=== PATIENT | male | born 1965 | race Caucasian/White ===

== ENCOUNTER 2020-06-11 10:08 | Emergency (ER) | payer OTHER, SELFPAY ==
[2020-06-11] VITALS (32 sets, daily range): BP systolic 131–156; BP diastolic 89–108; PULSE 85–127; RESP 18–32; TEMP 36.2; O2SAT 94–99
--- NOTE | 2020-06-11 10:24 | NUR.NOTE ---
Nursing Note: Has been taking Tylenol and Gas X without relief.
--- NOTE | 2020-06-11 10:45 | DI.CT_ITS ---
EXAM: CT ABDOMEN PELVIS W CLINICAL HISTORY: rlq pain, rebound tenderness, vomiting diarrhea TECHNIQUE: COMPARISON: No exams were available for comparison FINDINGS: CT examination of the abdomen and pelvis was performed with bolus infusion of 100 cc of Omnipaque 350 . Images obtained through the lung bases are unremarkable. The liver appears normal with no evidence of a focal mass. Spleen is unremarkable in appearance.. Gallbladder and bile ducts are unremarkable. Pancreas is unremarkable in appearance. Adrenals appear normal bilaterally. Kidneys appear normal with no evidence of renal mass, hydronephrosis, or nephrolithiasis There is no evidence of abdominal or pelvic adenopathy. Abdominal aorta is of normal diameter and no major vascular abnormality is seen. Appendix is nonvisualized. There is mild abdominal ascites, predominantly in the pericolic gutters i n the pelvis. There is marked wall thickening of the sigmoid colon with prominent associated fat str anding. There is 44 x 37 millimeter in diameter fluid and gas containing apparent abscess with an en hancing wall consistent with a diverticular abscess of the sigmoid. Multiple loops of small bowel are wrapped around the region of the abscess and there is marked small bowel wall edema in this region. There appears to be a mild small bowel obstruction with moderate di latation of small bowel proximal to the site described above. Additionally there is small bowel wall edema involving the terminal ileum, nonspecific. Small bowel enteritis/colitis not excluded. Urinary bladder has a markedly thickened wall which may represent chronic bladder outlet obstruction. Small left fat containing inguinal hernia noted, there appears to be some fluid in the hernia sac. Impression: Lower abdominal midline abscess just posterior to the anterior abdominal wall below the level of the umbilicus, this appears to represent a diverticular abscess with associated diverticulitis. There ap pears to be secondary small-bowel obstruction due to small bowel wall edema in small-bowel loops wrap ped around the region of the presumed abscess. Additional areas of small bowel wall thickening/edema are also seen particularly the terminal ileum, these are nonspecific and may be associated with generalized intra-abdominal inflammatory process. O ther etiologies including small-bowel enteritis not excluded. Appropriate follow-up studies requeste d. RADIATION DOSE DELIVERED: 676.93mGy.cm Total DLP 676.93mGy.cm Total DLP DATA REPOSITORY: All CT scans at this facility are submitted to the National Radiology Data Registry (NRDR) Dose Index Registry (DIR) with the [employer] ([employer]). RADIATION OPTIMIZATION: All CT scans at this facility use at least one of these dose optimization te chniques: automated exposure control; mA and/or kV adjustment per patient size (includes targeted exa ms where dose is matched to clinical indication); or iterative reconstruction.
[2020-06-11 10:49] LABS: Lactate 1.9 mmol/L (0.6-1.4)
[2020-06-11 10:52] LABS: Abs Immature Grans 0.08 10^3/uL (0.0-0.06); Absolute Eosinophil Count 0.02 10^3/uL (0.0-0.7); Absolute Lymphocyte Count 0.82 10^3/uL (1.2-3.4); Absolute Neutrophil Count 14.05 10^3/uL (1.2-6.7); Basophils % 0.3; Eosinophils % 0.1; HCT 44.4 % (40.0-50.0); HGB 15.8 g/dL (13.5-17.5); Immature Grans % 0.5; Lymphocytes % 5.2; MCH 31.4 pg (27.0-33.0); MCHC 35.6 % (32.0-36.0); MCV 88.3 fL (80-95); MPV 10.2 fL (8.0-11.0); Monocytes % 4.9; Nucleated RBC 0 %; Platelet Count 283 10^3/uL (130-400); RBC 5.03 10^6/uL (4.36-5.78); RDW 11.7 % (11.8-14.1); RDW-SD 37.5 fL; WBC 15.79 10^3/uL (4.4-10.8)
[2020-06-11 10:57] LABS: Absolute Basophil Count 0.05 10^3/uL (0.0-0.2); Absolute Monocyte Count 0.77 10^3/uL (0.1-0.8)
--- NOTE | 2020-06-11 10:59 | ED.GENADUL_ITS ---
Discharge Plan Disposition Patient Disposition: [facility] Condition: Serious Discharge Details Clinical Impression: Diverticulitis of large intestine with abscess, Small bowel obstruction Primary Care Provider: Joni Wolfe ED Provider: Nelson Romo Home Meds and New Rx's Prescriptions: No Action No Known Home Meds RF: 0 Discharge Data Discharge Date/Time-TO BE ENTERED AT DEPARTURE: 06/11/20 13:41 Medical Decision Making <Nelson Romo MD - Last Filed: 06/28/20 11:43> 11:05 -- 55yo m with 3 days lower abd pain, nausea/vomiting, loose stool, tender RLQ with rebound tenderness. Patient is tachycardic. Attempted [id number] ultrasound and unable to visualize aorta due to bowel gas. Plan for CT of the abdomen pelvis to assess for acute surgical pathology including acute appendicitis and perforated viscus. Patient remain n.p.o. and will give IVF. 12:58 --labs reviewed and leukocytosis noted. CT abdomen pelvis was reviewed and interpreted by radiology: Perforated viscus with 4 cm abscess from likely diverticulum, associated small bowel inflammation with small bowel obstruction. Initiated antibiotic coverage with Zosyn 4.5 g IV. Patient reassessed and heart rate improved. I called and spoke with on-call general surgeon, Dr. Dinero and discussed ED presentation and diagnostics. Dr. Dinero reviewed CT scans and examined the patient. Recommendation is for transfer for interventional radiology to drain abscess. I called and spoke with on-call surgeon at [facility], Dr. Leone, discussed ED presentation and course including diagnostics, CT scan for review, he may accept the patient in transfer. No additional antibiotic coverage recommended at this time. Imaging Data Radiologic Study: Imaging: CT Scan (Abdomen and pelvis with IV contrast) Radiologist's impression: Impression: Lower abdominal midline abscess just posterior to the anterior abdominal wall below the level of the umbilicus, this appears to represent a diverticular abscess with associated diverticulitis. There appears to be secondary small- bowel obstruction due to small bowel wall edema in small-bowel loops wrapped around the region of the presumed abscess. Additional areas of small bowel wall thickening/edema are also seen particularly the terminal ileum, these are nonspecific and may be associated with generalized intra-abdominal inflammatory process. Other etiologies including small-bowel enteritis not excluded. Appropriate follow-up studies requested. Lab Data Lab results reviewed: Yes I reviewed the patient's lab results. Labs: 06/11/20 10:20 Urine - Reflex from Ua Urine Culture - Pending Laboratory Tests Range/Units 06/11/20 06/11/20 06/11/20 10:20 10:30 10:30 WBC (4.4-10.8) 10^3/uL RBC (4.36-5.78) 10^6/uL Hgb (13.5-17.5) g/dL Hct (40.0-50.0) % MCV (80-95) fL MCH (27.0-33.0) pg MCHC (32.0-36.0) % RDW (11.8-14.1) % Plt Count (130-400) 10^3/uL MPV (8.0-11.0) fL Immature Gran % Neutrophils % Lymphocytes % Monocytes % Eosinophils % Basophils % Nucleated RBC % % Absolute Neutrophils (1.2-6.7) 10^3/uL Absolute Lymphocytes (1.2-3.4) 10^3/uL Absolute Monocytes (0.1-0.8) 10^3/uL Absolute Eosinophils (0.0-0.7) 10^3/uL Absolute Basophils (0.0-0.2) 10^3/uL VBG Lactate (0.6-1.4) mmol/L 1.9 H Sodium (136-145) mmol/L 131 L Potassium (3.5-5.1) mmol/L 3.4 L Chloride (98-107) mmol/L 95 L Carbon Dioxide (21.0-32.0) mmol/L 23.0 Anion Gap (3-11) mmol/L 13.0 H BUN (7-18) mg/dL 21 H Creatinine (0.70-1.30) mg/dL 1.10 Estimated GFR/1.73 m2 (mL/min/1.73m2) >= 60.00 Glucose (74-106) mg/dL 162 H Calcium (8.5-10.1) mg/dL 9.3 Total Bilirubin (0.2-1.0) mg/dL 0.8 AST (15-37) U/L 12 L ALT (16-63) U/L 19 Alkaline Phosphatase (46-116) U/L 94 Total Protein (6.4-8.2) g/dL 8.5 H Albumin (3.4-5.0) g/dL 3.3 L Lipase (73-393) U/L 39 Urine Color (Yellow) Yellow Urine Clarity (Clear) Clear Urine pH (5-8) 5.5 Ur Specific [place] (1.005-1.025) >= 1.030 H Urine Protein (Negative) mg/dL 100 H Urine Ketones (Negative) mg/dL 40 H Urine Blood (Negative) Trace-intact H Urine Nitrite (Negative) Negative Urine Bilirubin (Negative) Moderate H Urine Urobilinogen (Up TO 0.2) EU/dL 0.2 Ur Leukocyte Esterase (Negative) Negative Urine RBC (0-2) HPF 5-10 H Urine WBC (0-5) HPF >50 H Ur Epithelial Cells (Negative) HPF Few Urine Crystals (Negative) HPF Moderate amorphous Urine Bacteria (Negative) HPF Many Urine Casts (Negative) LPF Comment Urine Mucus (Negative) Heavy Ur Culture Indicated? Yes Urine Glucose (Negative) mg/dL Negative Range/Units 06/11/20 10:30 WBC (4.4-10.8) 10^3/uL 15.79 H RBC (4.36-5.78) 10^6/uL 5.03 Hgb (13.5-17.5) g/dL 15.8 Hct (40.0-50.0) % 44.4 MCV (80-95) fL 88.3 MCH (27.0-33.0) pg 31.4 MCHC (32.0-36.0) % 35.6 RDW (11.8-14.1) % 11.7 L Plt Count (130-400) 10^3/uL 283 MPV (8.0-11.0) fL 10.2 Immature Gran % 0.5 Neutrophils % 89.0 Lymphocytes % 5.2 Monocytes % 4.9 Eosinophils % 0.1 Basophils % 0.3 Nucleated RBC % % 0 Absolute Neutrophils (1.2-6.7) 10^3/uL 14.05 H Absolute Lymphocytes (1.2-3.4) 10^3/uL 0.82 L Absolute Monocytes (0.1-0.8) 10^3/uL 0.77 Absolute Eosinophils (0.0-0.7) 10^3/uL 0.02 Absolute Basophils (0.0-0.2) 10^3/uL 0.05 VBG Lactate (0.6-1.4) mmol/L Sodium (136-145) mmol/L Potassium (3.5-5.1) mmol/L Chloride (98-107) mmol/L Carbon Dioxide (21.0-32.0) mmol/L Anion Gap (3-11) mmol/L BUN (7-18) mg/dL Creatinine (0.70-1.30) mg/dL Estimated GFR/1.73 m2 (mL/min/1.73m2) Glucose (74-106) mg/dL Calcium (8.5-10.1) mg/dL Total Bilirubin (0.2-1.0) mg/dL AST (15-37) U/L ALT (16-63) U/L Alkaline Phosphatase (46-116) U/L Total Protein (6.4-8.2) g/dL Albumin (3.4-5.0) g/dL Lipase (73-393) U/L Urine Color (Yellow) Urine Clarity (Clear) Urine pH (5-8) Ur Specific [place] (1.005-1.025) Urine Protein (Negative) mg/dL Urine Ketones (Negative) mg/dL Urine Blood (Negative) Urine Nitrite (Negative) Urine Bilirubin (Negative) Urine Urobilinogen (Up TO 0.2) EU/dL Ur Leukocyte Esterase (Negative) Urine RBC (0-2) HPF Urine WBC (0-5) HPF Ur Epithelial Cells (Negative) HPF Urine Crystals (Negative) HPF Urine Bacteria (Negative) HPF Urine Casts (Negative) LPF Urine Mucus (Negative) Ur Culture Indicated? Urine Glucose (Negative) mg/dL <FRANCISCO Moreno - Last Filed: 06/12/20 08:24> Addendum: contacted by lab, negative COVID. Called [facility] and relayed information. HPI <Nelson Romo MD - Last Filed: 06/28/20 11:43> General Mode of arrival: ambulatory . Date/Time Provider Initiated Documentation: 06/11/20 10:17 . Limitations to Documentation: no limitations . Information obtained by: patient . HPI Narrative: 55-year-old otherwise healthy male presents with chief complaint of abdominal pain. Pain has been persistent for the past 3 days. Pain waxes and wanes but is constantly present. Pain localized to lower abdomen worse on the right. Patient has associated nonbloody vomiting, nausea, anorexia, and loose nonbloody stool. He notes his stool this morning did seem darker than usual. He has had some associated subjective fever. Pain is currently moderate worse with movement described as sharp. Rel ated Data Home Medications Medication Instructions Recorded Confirmed Unknown [No Known Home Meds] 06/20/17 06/23/20 Allergies Allergy/AdvReac Type Severity Reaction Status Date / Time No Known Drug Allergies Allergy Verified 06/23/20 13:13 General Stated Complaint: Abd Prob ZENOBIA: 2 Review of Systems <Nelson Romo MD - Last Filed: 06/28/20 11:43> All systems reviewed & are unremarkable except as noted in HPI and below Constitutional Constitutional: Reports as per HPI Gastrointestinal Gastrointestinal: Reports as per HPI, Reports abdominal pain, Reports nausea and Reports vomiting Genitourinary Genitourinary: Denies difficulty urinating and Denies dysuria PFSH <Nelson Romo MD - Last Filed: 06/28/20 11:43> Medical History (Updated 06/23/20 @ 13:45 by Michael Soto NP) Alcohol abuse, unspecified (04/05/10) No pertinent past medical history Surgical History Excision, Distal Clavicle (02/24/14) LEFT Rotator Cuff Repair B/L Family History Mother Hyperlipidemia Father Diabetes Essential hypertension Hyperlipidemia Stroke Social History (Updated 06/11/20 @ 12:48 by Avelina Dinero MD) Smoking/Tobacco Use Status: Never Smoking risk assessment performed?: Yes Alcohol Intake: current Alcohol Intake frequency: a few times a week Alcohol type: beer Drug use: Never Substance use type: does not use Household members: spouse Do you feel safe at home: Yes Do you feel safe in your relationship?: Yes Exam <Nelson Romo MD - Last Filed: 06/28/20 11:43> Const General: cooperative and no acute distress HENMT Head: normocephalic and atraumatic Mouth: moist mucous membranes Eyes Conjunctivae: normal conjunctivae Sclera: normal sclerae Neck Neck: trachea midline and supple Resp Auscultation: clear to auscultation bilaterally, no rales, no rhonchi and no wheezes Cardio Rhythm: regular rhythm GI Inspection: non-distended Palpation: soft, firm, no guarding, no masses, not rigid and tender in the RLQ and with rebound tenderness Skin General skin exam: no rashes or lesions noted Neuro General: patient alert, patient awake, patient oriented x3 and tone normal Extrem General: no edema Psych Appearance: grossly normal Mental Status: mental status grossly normal Course <Nelson Romo MD - Last Filed: 06/28/20 11:43> Vital Signs Vital signs: Vital Signs Temperature 36.2 C L 06/11/20 10:13 Pulse 101 H 06/11/20 10:13 Respiratory Rate 24 06/11/20 10:13 Blood Pressure 154/108 H 06/11/20 10:13 Pulse Oximetry 97 06/11/20 10:13 Temperature 36.2 C L 06/11/20 10:13 Temperature Source Temporal Artery Scan 06/11/20 10:13 Pulse 101 H 06/11/20 10:13 Respiratory Rate 24 06/11/20 10:13 Respiratory Effort Non-Labored 06/11/20 10:21 Blood Pressure 154/108 H 06/11/20 10:13 Blood Pressure Position Supine 06/11/20 10:13 Pulse Oximetry 97 06/11/20 10:13 Oxygen Delivery Method Room Air 06/11/20 10:13 Oxygen Flow Rate 0 06/11/20 10:13 Pain Level 5 06/11/20 10:13 Comment 06/11/20 10:13 Lab/Test Results Lab/Test Results: Laboratory Tests Range/Units 06/11/20 06/11/20 10:30 10:30 WBC (4.4-10.8) 10^3/uL 15.79 H RBC (4.36-5.78) 10^6/uL 5.03 Hgb (13.5-17.5) g/dL 15.8 Hct (40.0-50.0) % 44.4 MCV (80-95) fL 88.3 MCH (27.0-33.0) pg 31.4 MCHC (32.0-36.0) % 35.6 RDW (11.8-14.1) % 11.7 L Plt Count (130-400) 10^3/uL 283 MPV (8.0-11.0) fL 10.2 Immature Gran % 0.5 Neutrophils % 89.0 Lymphocytes % 5.2 Monocytes % 4.9 Eosinophils % 0.1 Basophils % 0.3 Nucleated RBC % % 0 Absolute Neutrophils (1.2-6.7) 10^3/uL 14.05 H Absolute Lymphocytes (1.2-3.4) 10^3/uL 0.82 L Absolute Monocytes (0.1-0.8) 10^3/uL 0.77 Absolute Eosinophils (0.0-0.7) 10^3/uL 0.02 Absolute Basophils (0.0-0.2) 10^3/uL 0.05 VBG Lactate (0.6-1.4) mmol/L 1.9 H
[2020-06-11 11:03] LABS: ALT 19 U/L (16-63); AST 12 U/L (15-37); Albumin 3.3 g/dL (3.4-5.0); Alkaline Phosphatase 94 U/L (46-116); BUN 21 mg/dL (7-18); Bilirubin, Total 0.8 mg/dL (0.2-1.0); Calcium 9.3 mg/dL (8.5-10.1); Chloride 95 mmol/L (98-107); Glucose 162 mg/dL (74-106); Lipase 39 U/L (73-393); Potassium 3.4 mmol/L (3.5-5.1); Sodium 131 mmol/L (136-145); Total Protein 8.5 g/dL (6.4-8.2)
[2020-06-11 11:18] LABS: Bilirubin Moderate (Negative); Blood Trace-intact (Negative); Clarity Clear (Clear); Glucose Negative (Negative); Ketones 40 mg/dL (Negative); Leukocyte Esterase Negative (Negative); Nitrite Negative (Negative); Specific Gravity >= 1.030 (1.005-1.025); Urobilinogen 0.2 EU/dL (Up TO 0.2); pH 5.5 (5-8)
[2020-06-11 11:23] LABS: Bacteria Many HPF (Negative); Epithelial Cells Few HPF (Negative); WBC >50 HPF (0-5)
[2020-06-11 11:24] LABS: C & S Indicated? Yes; Crystals Moderate Amorphous HPF (Negative); Mucus Heavy (Negative)
[2020-06-11] MEDS: Omnipaque 350 MG/ML 100 ML BTL IV (11:24)
[2020-06-11] MEDS: Normal Saline - Diluent 50 ML VIAL IV (11:29)
[2020-06-11] MEDS: Omnipaque 350 MG/ML 100 ML BTL IJ (11:32)
[2020-06-11] MEDS: Lactated Ringers 500 ML 1000 ML IV (11:43)
[2020-06-11] MEDS: PIPERACILLIN/TAZO 4.5 GM in Normal Saline 100 ML IVPB (12:07)
--- NOTE | 2020-06-11 12:25 | SCONE_ITS ---
Date of service: 06/11/20 Time of Service: 12:25 Assessment and Plan Assessment and plan (1) Diverticulitis of large intestine with abscess: Status: Acute Assessment and plan: 55 year old with a ruptured sigmoid diverticulum with abscess. Abdomen is tender. He has guarding Explained the disease to him and his . I think he would benefit from drainage procedure and IV antibiotics to try and avoid surgery with colostomy. Discussed case with Dr. Romo. Will see if [facility] has a bed so he can have IR drainage. If there is no bed then I will try to set up transport back and forth to IR at [facility] and then treat him with IV antibiotics Dr. Romo discussed case with Dr. Lay who will accept the patient Appreciate the consult Qualifiers: Diverticulitis bleeding: without bleeding Qualified Code(s): K57.20 - Diverticulitis of large intestine with perforation and abscess without bleeding History of Present Illness History of Present Illness Chief Complaint: ruptured diverticulum with abscess Narrative: Mr. Ernst is a 55-year-old otherwise healthy male that presented with chief complaint of abdominal pain. The pain started on sunday. Pain waxes and wanes but is constantly present. Pain localized to lower abdomen worse on the right. Patient has associated nonbloody vomiting, nausea, anorexia, and loose nonbloody stool. He notes his stool this morning did seem darker than usual. He has had some associated subjective fever. Pain is currently moderate worse with movement described as sharp. Work-up showed WBC count elevated at 15.79 with a left shift. CT scan revealed a sigmoid diverticular rupture with 4.4 cm abscess. There is dilatation of the small bowel surrounding it. He has no cardiac history. He denies chest pain Consults Consult date: 06/11/20 Requesting physician: Nelson Romo Review of Systems Constitutional Constitutional: Reports fatigue, Reports fever(s), Denies headache(s), Reports poor appetite and Denies weight loss Eyes Eyes: Denies change in vision ENT Ears, Nose, Mouth, and Throat: Denies dysphagia, Denies headache(s) and Denies hoarseness Cardiovascular Cardiovascular: Denies chest pain, Denies chest pain at rest, Denies chest pain with activity, Denies irregular heart rhythm, Denies palpitations and Denies dyspnea Respiratory Respiratory: Denies cough and Denies dyspnea Gastrointestinal Gastrointestinal: Reports as per HPI and Denies dysphagia Genitourinary Genitourinary: Reports system reviewed and no additional complaints, except as documented Musculoskeletal Musculoskeletal: Reports system reviewed and no additional complaints, except as documented Integumentary/Breasts Skin/Breast: Reports system reviewed and no additional complaints, except as documented Neurologic Neurologic: Reports system reviewed and no additional complaints, except as documented and Denies headache(s) Psychiatric Psychiatric: Reports system reviewed and no additional complaints, except as documented Endocrine Endocrine: Reports system reviewed and no additional complaints, except as docu mented, Reports fatigue and Denies palpitations [facility] Medical History (Updated 06/11/20 @ 12:52 by Avelina Dinero MD) Alcohol abuse, unspecified (04/05/10) No pertinent past medical history Surgical History Excision, Distal Clavicle (02/24/14) LEFT Rotator Cuff Repair B/L Family History Mother Hyperlipidemia Father Diabetes Essential hypertension Hyperlipidemia Stroke Social History (Updated 06/11/20 @ 12:48 by Avelina Dinero MD) Smoking/Tobacco Use Status: Never Smoking risk assessment performed?: Yes Alcohol Intake: current Alcohol Intake frequency: a few times a week Alcohol type: beer Drug use: Never Substance use type: does not use Household members: spouse Do you feel safe at home: Yes Do you feel safe in your relationship?: Yes Exam Const General: cooperative, comfortable and no acute distress Orientation: alert and oriented x3 HENMT Head: normocephalic and atraumatic Resp Effort & Inspection: normal respiratory effort Auscultation: clear to auscultation bilaterally Cardio Rate: regular rate Rhythm: regular rhythm Heart Sounds: no gallops, no murmurs and no rubs GI Inspection: normal to inspection Palpation: soft, no hepatosplenomegaly and tender (lower abdomen with guarding) Auscultation: normal bowel sounds Results Last Vital Signs Temp 97.2 F L 06/11/20 10:13 Pulse 99 H 06/11/20 11:01 Resp 31 H 06/11/20 11:01 BP 139/92 H 06/11/20 11:01 Pulse Ox 97 06/11/20 11:01 Labs Result diagrams: 06/11/20 10:30 06/11/20 10:30 Labs: Laboratory Results - last 24 hr 06/11/20 06/11/20 06/11/20 10:20 10:30 10:30 WBC RBC Hgb Hct MCV MCH MCHC RDW Plt Count MPV Immature Gran % Neutrophils % Lymphocytes % Monocytes % Eosinophils % Basophils % Nucleated RBC % Absolute Neutrophils Absolute Lymphocytes Absolute Monocytes Absolute Eosinophils Absolute Basophils VBG Lactate 1.9 H Sodium 131 L Potassium 3.4 L Chloride 95 L Carbon Dioxide 23.0 Anion Gap 13.0 H BUN 21 H Creatinine 1.10 Estimated GFR/1.73 m2 >= 60.00 Glucose 162 H Calcium 9.3 Total Bilirubin 0.8 AST 12 L ALT 19 Alkaline Phosphatase 94 Total Protein 8.5 H Albumin 3.3 L Lipase 39 Urine Color Yellow Urine Clarity Clear Urine pH 5.5 Ur Specific [place] >= 1.030 H Urine Protein 100 H Urine Ketones 40 H Urine Blood Trace-intact H Urine Nitrite Negative Urine Bilirubin Moderate H Urine Urobilinogen 0.2 Ur Leukocyte Esterase Negative Urine RBC 5-10 H Urine WBC >50 H Ur Epithelial Cells Few Urine Crystals Moderate amorphous Urine Bacteria Many Urine Casts Comment Urine Mucus Heavy Ur Culture Indicated? Yes Urine Glucose Negative 06/11/20 10:30 WBC 15.79 H RBC 5.03 Hgb 15.8 Hct 44.4 MCV 88.3 MCH 31.4 MCHC 35.6 RDW 11.7 L Plt Count 283 MPV 10.2 Immature Gran % 0.5 Neutrophils % 89.0 Lymphocytes % 5.2 Monocytes % 4.9 Eosinophils % 0.1 Basophils % 0.3 Nucleated RBC % 0 Absolute Neutrophils 14.05 H Absolute Lymphocytes 0.82 L Absolute Monocytes 0.77 Absolute Eosinophils 0.02 Absolute Basophils 0.05 VBG Lactate Sodium Potassium Chloride Carbon Dioxide Anion Gap BUN Creatinine Estimated GFR/1.73 m2 Glucose Calcium Total Bilirubin AST ALT Alkaline Phosphatase Total Protein Albumin Lipase Urine Color Urine Clarity Urine pH Ur Specific [place] Urine Protein Urine Ketones Urine Blood Urine Nitrite Urine Bilirubin Urine Urobilinogen Ur Leukocyte Esterase Urine RBC Urine WBC Ur Epithelial Cells Urine Crystals Urine Bacteria Urine Casts Urine Mucus Ur Culture Indicated? Urine Glucose
--- NOTE | 2020-06-11 12:31 | NUR.NOTE ---
Nursing Note:LR 500 ml in HR initially 87. HR now 114 after NG tube inserted. Discussed with Dr. Dinero will finish the liter.
--- NOTE | 2020-06-11 13:07 | DI.RAD_ITS ---
EXAM: XR ABDOMEN FLAT PLATE CLINICAL HISTORY: post ng placement TECHNIQUE: COMPARISON: No exams were available for comparison FINDINGS: Three views were obtained. There is marked proximal small bowel dilatation as noted on today's CT. Contrast is present in the collecting systems and ureters bilaterally and in the urinary bladder. No gross free intraperitoneal air. There is an NG tube the tip of which lies in the distal esophagus about 5 cm above the esophageal hia tus. IMPRESSION: RADIATION DOSE DELIVERED: Total DLP Total DLP
[2020-06-12 08:22] LABS: COVID-19 RT-PCR UVMMC Result Negative (Negative)
--- NOTE | 2020-06-13 07:56 | NUR.NOTE ---
Nursing Note: Urine culture result faxed to [facility] . . Ciarra Dowell
== END 2020-06-11 13:41 | disposition short-term general hospital (02) ==
PROVIDERS: Emergency Provider Student in an Organized Health Care Education/Training Program; PCP Family Medicine
DX: K57.20 Diverticulitis of large intestine with perforation and abscess without bleeding (principal); R10.823 Right lower quadrant rebound abdominal tenderness; Z03.818 Encounter for observation for suspected exposure to other biological agents ruled out
CPT/HCPCS: 36415; 80053; 83690; 96361; 96365; 99253; 99285; U0003; 74018; 74177; 81003; 81015; 83605; 85025; 87086; J2543; J3490

== ENCOUNTER 2022-08-23 04:08 | Outpatient (CLI) | payer OTHER, SELFPAY ==
[2022-08-23 09:13] LABS: Hemoglobin A1C 5.3 % (<5.7)
[2022-08-23 09:33] LABS: ALT 34 U/L (16-63); AST 22 U/L (15-37); Albumin 4.6 g/dL (3.4-5.0); Alkaline Phosphatase 109 U/L (46-116); Anion Gap 11.6 mmol/L (3-11); BUN 16 mg/dL (7-18); Bilirubin, Total 0.7 mg/dL (0.2-1.0); CO2 24.4 mmol/L (21.0-32.0); CREATININE 0.8 mg/dL (0.70-1.30); Calcium 9.5 mg/dL (8.5-10.1); Calculated LDL 136 mg/dL (<100); Chloride 102 mmol/L (98-107); Cholesterol 239 mg/dL (<200); Estimated GFR 102.58 (mL/min/1.73m2); Glucose 111 mg/dL (74-106); HDL Cholesterol 81 mg/dL (40-60); Potassium 3.9 mmol/L (3.5-5.1); Sodium 138 mmol/L (136-145); Triglyceride 113 mg/dL (<150)
[2022-08-23 17:44] LABS: PSA, Screening 0.6 ng/mL (<=3.5)
== END 2022-08-23 04:09 | disposition home or self-care (01) ==
LOC: LBO 04:08
PROVIDERS: PCP Nurse Practitioner Family; Visit Provider Nurse Practitioner Family
DX: Z13.1 Encounter for screening for diabetes mellitus (principal); R03.0 Elevated blood-pressure reading, without diagnosis of hypertension; Z12.5 Encounter for screening for malignant neoplasm of prostate; Z13.220 Encounter for screening for lipoid disorders
CPT/HCPCS: 36415; 80053; 80061; 84153; 83036

== ENCOUNTER 2024-02-06 10:16 | Outpatient (CLI) | payer OTHER, SELFPAY ==
--- NOTE | 2024-02-06 10:15 | RT.EKG_ITS ---
APPROVED REPORT Exam: Resting ECG Reason for Exam: weakness Patient Location: O HR:67 bpm ECG Measurements Heart Rate 67 AXIS NC 155 P 8 QRSd 110 QRS -22 QT 375 T 34 QTc 396 Conclusion Sinus rhythm...normal P axis, V-rate 50- 99 Borderline left axis deviation...QRS axis (-15,-29) RSR' in V1 or V2, probably normal variant...small R' only
== END 2024-02-06 10:17 | disposition home or self-care (01) ==
LOC: DI.CM 10:17
PROVIDERS: PCP Nurse Practitioner Family; Visit Provider Nurse Practitioner Family
DX: R53.1 Weakness (principal); R94.31 Abnormal electrocardiogram [ECG] [EKG]
CPT/HCPCS: 93010

== ENCOUNTER → 2024-02-06 12:18 | Outpatient (CLI) | payer OTHER, SELFPAY ==
--- NOTE | 2024-02-06 10:45 | DI.RAD_ITS ---
Exam(s) XR CHEST 2V PA LATERAL EXAM: XR CHEST 2V PA LATERAL CLINICAL HISTORY: fatigue,weakness,r53.1 TECHNIQUE: 2D digital imaging was performed of the chest. Two images were obtained. PA and lateral views were obtained. COMPARISON: CR CHEST 2 VIEWS PA,LAT from 06/20/2017 FINDINGS: MEDIASTINUM: Normal. HEART: Normal. PULMONARY VASCULATURE: Normal. LUNGS: Clear. PLEURAL SPACE: No pleural effusion or pneumothorax. BONE:Within normal limits for the patient's age. OTHER FINDINGS:Normal. IMPRESSION: No acute pulmonary findings. DATA REPOSITORY: RADIATION DOSE DELIVERED:
== END ==
PROVIDERS: PCP Nurse Practitioner Family; Visit Provider Nurse Practitioner Family
DX: R53.1 Weakness (principal)
CPT/HCPCS: 71046

== ENCOUNTER 2024-02-06 22:48 | Outpatient (REF) | payer OTHER, SELFPAY ==
[2024-02-06 18:33] LABS: Abs Immature Grans 0.02 10^3/uL (0.0-0.06); Absolute Basophil Count 0.06 10^3/uL (0.0-0.2); Absolute Eosinophil Count 0.21 10^3/uL (0.0-0.7); Absolute Lymphocyte Count 2.27 10^3/uL (1.2-3.4); Absolute Monocyte Count 0.45 10^3/uL (0.1-0.8); Absolute Neutrophil Count 3.68 10^3/uL (1.2-6.7); Basophils % 0.9 %; Eosinophils % 3.1 %; HCT 46.4 % (40.0-50.0); HGB 15.9 g/dL (13.5-17.5); Immature Grans % 0.3 %; Lymphocytes % 33.9 %; MCH 32.4 pg (27.0-33.0); MCHC 34.3 % (32.0-36.0); MCV 95 fL (80-95); MPV 9.4 fL (8.0-11.0); Monocytes % 6.7 %; Neutrophils % 55.1 %; Platelet Count 280 10^3/uL (130-400); RBC 4.91 10^6/uL (4.36-5.78); RDW 11.8 % (11.8-14.1); WBC 6.69 10^3/uL (4.4-10.8)
[2024-02-06 18:38] LABS: Iron 131 ug/dL (65-175)
[2024-02-06 18:48] LABS: ALT 43 U/L (16-63); AST 24 U/L (15-37); Albumin 4.1 g/dL (3.4-5.0); Alkaline Phosphatase 105 U/L (46-116); Anion Gap 12.3 mmol/L (3-11); BUN 13 mg/dL (7-18); Bilirubin, Total 0.38 mg/dL (0.2-1.0); CO2 25.7 mmol/L (21.0-32.0); CREATININE 0.7 mg/dL (0.70-1.30); Calcium 9.3 mg/dL (8.5-10.1); Chloride 106 mmol/L (98-107); Estimated GFR 106.14 (mL/min/1.73m2); Glucose 118 mg/dL (74-106); Potassium 3.9 mmol/L (3.5-5.1); Sodium 144 mmol/L (136-145); TSH (W/Ref FT4) 2.07 uIU/mL (0.36-3.74); Total Protein 7.4 g/dL (6.4-8.2)
[2024-02-06 18:50] LABS: C-Reactive Protein < 0.50 mg/dL (<or=0.5)
[2024-02-06 19:26] LABS: Ferritin 989 ng/mL (26-388); Vitamin B12 595 pg/mL (193-986)
[2024-02-08 11:00] LABS: Uric Acid 9.6 mg/dL (3.5-7.2)
[2024-02-08 18:04] LABS: Rheumatoid Factor <8.6 IU/mL (<12.0)
[2024-02-11 10:51] LABS: Lyme Ab w Rflx to Lyme Confirm Positive (Negative)
[2024-02-11 13:22] LABS: ANA Interpretation Negative (Negative)
[2024-02-11 14:31] LABS: Lyme IgG Ab Positive (Negative); Lyme IgM Ab Negative (Negative)
[2024-02-11 20:57] LABS: Anaplasma phagocytophilum Negative (Negative); B. miyamotoi PCR Negative (Negative); Babesia divergens/MO-1 Negative (Negative); Babesia duncani Negative (Negative); Babesia microti Negative (Negative); Ehrlichia chaffeensis Negative (Negative); Ehrlichia ewingii/canis Negative (Negative); Ehrlichia muris eauclairensis Negative (Negative)
== END 2024-02-06 22:49 | disposition home or self-care (01) ==
LOC: LBN 22:48
PROVIDERS: PCP Nurse Practitioner Family; Visit Provider Nurse Practitioner Family
DX: R53.1 Weakness (principal); R79.89 Other specified abnormal findings of blood chemistry
CPT/HCPCS: 80053; 86617; 87798; 82607; 82728; 83540; 84443; 84550; 85025; 86038; 86140; 86431; 86618

== ENCOUNTER 2024-02-07 12:32 | Outpatient (CLI) | payer OTHER, SELFPAY ==
[2024-02-07 14:14] LABS: Ferritin 1478 ng/mL (26-388)
[2024-02-12 10:34] LABS: Result Summary NEGATIVE; Specimen WB Whole Blood
== END 2024-02-07 12:33 | disposition home or self-care (01) ==
LOC: LBO 12:33
PROVIDERS: PCP Nurse Practitioner Family; Visit Provider Nurse Practitioner Family
DX: R79.89 Other specified abnormal findings of blood chemistry (principal)
CPT/HCPCS: 36415; 81256; 82728

== ENCOUNTER 2024-02-08 13:59 | Outpatient (CLI) | payer OTHER, SELFPAY ==
[2024-02-08 14:03] LABS: ESR 2 mm/hr (0-20)
[2024-02-08 14:19] LABS: Uric Acid 7.4 mg/dL (3.5-7.2)
[2024-02-08 22:14] LABS: Rheumatoid Factor <8.6 IU/mL (<12.0)
[2024-02-11 11:24] LABS: Lyme Ab w Rflx to Lyme Confirm Positive (Negative)
[2024-02-11 13:22] LABS: ANA Interpretation Negative (Negative)
[2024-02-11 16:12] LABS: Lyme IgG Ab Positive (Negative); Lyme IgM Ab Negative (Negative)
[2024-02-11 23:25] LABS: Anaplasma phagocytophilum Negative (Negative); B. miyamotoi PCR Negative (Negative); Babesia divergens/MO-1 Negative (Negative); Babesia duncani Negative (Negative); Babesia microti Negative (Negative); Ehrlichia chaffeensis Negative (Negative); Ehrlichia ewingii/canis Negative (Negative); Ehrlichia muris eauclairensis Negative (Negative)
== END 2024-02-08 14:00 | disposition home or self-care (01) ==
LOC: LBO 14:00
PROVIDERS: PCP Nurse Practitioner Family; Visit Provider Nurse Practitioner Family
DX: W57.XXXA Bitten or stung by nonvenomous insect and other nonvenomous arthropods, initial encounter (principal); R79.89 Other specified abnormal findings of blood chemistry
CPT/HCPCS: 36415; 85652; 86617; 87798; 84550; 86038; 86431; 86618

== ENCOUNTER 2024-09-10 17:40 | Outpatient (CLI) | payer OTHER, SELFPAY ==
[2024-09-10 14:50] LABS: Hemoglobin A1C 5.3 % (<5.7)
[2024-09-10 16:09] LABS: ALT 62 U/L (16-63); AST 33 U/L (15-37); Albumin 4.3 g/dL (3.4-5.0); Alkaline Phosphatase 92 U/L (46-116); Anion Gap 9.1 mmol/L (3-11); BUN 7 mg/dL (7-18); Bilirubin, Total 0.45 mg/dL (0.2-1.0); CO2 25.9 mmol/L (21.0-32.0); CREATININE 0.7 mg/dL (0.70-1.30); Calcium 9.5 mg/dL (8.5-10.1); Calculated LDL 71 mg/dL (<100); Chloride 102 mmol/L (98-107); Cholesterol 172 mg/dL (<200); Estimated GFR 105.49 (mL/min/1.73m2); Glucose 103 mg/dL (74-106); HDL Cholesterol 90 mg/dL (40-60); Potassium 3.8 mmol/L (3.5-5.1); Sodium 137 mmol/L (136-145); Total Protein 7.7 g/dL (6.4-8.2); Triglyceride 58 mg/dL (<150)
[2024-09-11 22:06] LABS: PSA, Screening 0.4 ng/mL (<=4.5)
== END 2024-09-10 17:41 | disposition home or self-care (01) ==
LOC: LBO 17:43
PROVIDERS: PCP Nurse Practitioner Family; Visit Provider Nurse Practitioner Family
DX: Z13.220 Encounter for screening for lipoid disorders (principal); Z12.5 Encounter for screening for malignant neoplasm of prostate; F10.10 Alcohol abuse, uncomplicated; Z13.1 Encounter for screening for diabetes mellitus
CPT/HCPCS: 36415; 80053; 80061; 84153; 83036